=== PATIENT | female | born 1980 | race Native Hawaiian/Other Pacific Islander ===

== ENCOUNTER 2016-08-01 13:52 | Emergency (ER) | payer MEDICARE ==
[2016-08-01 14:16] VITALS: BP 124/89
--- NOTE | 2016-08-01 14:37 | Emergency Department Report ---
Chief Complaint: GI Bleed Stated Complaint: CRAMPING/RECTAL BLEEDING/POSS Time Seen by Provider: 08/01/16 14:35 - HPI History of Present Illness: Patient here reports that she's been bleeding from her rectal area and she states she is . She says she hasn't had a period since November 17, 2015. She says she's been having unprotected sex. 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 Jesus Grimes. She says she was supposed to follow up with him that she missed the appointment. Primary care physician is at [facility] and his name is Dr. Ng. Patient says she was diagnosed with stage III cancer of the cervix and started chemotherapy and radiation 5 months ago. She reports nausea and vomiting. Reports chills but doesn't know she has a fever. She reports that she's having abdominal pain at 10 out of 10. Patient also has mental health disorders. - ROS Review of Systems: All systems are negative unless stated in HPI above. - Exam Vital Signs: Vital Signs 08/01/16 14:10 Temperature 98 F Pulse Rate 118 H Respiratory 18 Rate Blood Pressure 124/89 O2 Sat by Pulse 97 Oximetry Physical Exam: General: This is a 36-year-old female well-nourished well-developed in no acute distress. GI: Tender to palpate periumbilical area. Normal bowel sounds. Abdomen is protruding. Lungs: Clear to auscultate bilaterally, no rhonchi wheezes or rales . CV: Tachycardic at 118 MSE screening note: Focused history and physical exam performed. Due to findings the following was ordered:see [facility] ED Medical Decision Making - Medical Decision Making Medical decision making: Patient seen by provider in triage area. Appropriate protocol activated and patient to main ED to be seen by physician. ED Disposition for [facility] Condition: Stable Forms: Accompanied Note
[2016-08-01 15:01] LABS: Basophils % (Auto) 0.6 % (0.0-1.8); Eosinophils % (Auto) 1.5 % (0.0-4.3); Hemoglobin 13.6 gm/dl (10.1-14.3); Mean Corpuscular HGB Conc 34 % (30-34); Mean Corpuscular Hemoglobin 34 pg (28-32); Mean Corpuscular Volume 99 fl (79-97); Platelet Count 237 K/mm3 (140-440); Red Blood Count 4.06 M/mm3 (3.65-5.03); Red Cell Distribution Width 13.1 % (13.2-15.2); White Blood Count 9.9 K/mm3 (4.5-11.0)
[2016-08-01 15:24] LABS: Alanine Aminotransferase 91 units/L (7-56); Albumin 3.9 g/dL (3.9-5); Albumin/Globulin Ratio 0.9 %; Alkaline Phosphatase 94 units/L (35-129); Amylase 85 units/L (27-131); Anion Gap 18 mmol/L; Bilirubin,Total 0.9 mg/dL (0.1-1.2); Blood Urea Nitrogen 13 mg/dL (7-17); Calcium 9.2 mg/dL (8.4-10.2); Carbon Dioxide 25 mmol/L (22-30); Glucose 98 mg/dL (65-100); Lipase 29 units/L (13-60); Potassium 3.6 mmol/L (3.6-5.0); Sodium 139 mmol/L (137-145); Total Protein 8.1 g/dL (6.3-8.2)
[2016-08-01 15:30] LABS: Bilirubin,Direct < 0.2 mg/dL (0-0.2)
[2016-08-01 15:49] LABS: Urine Drugs of Abuse Note Disclamer
[2016-08-01 16:08] LABS: Bilirubin,Urine NEG (Negative); Blood,Urine NEG (Negative); Ketones,Urine TR mg/dL (Negative); Leukocyte Esterase,Urine NEG (Negative); Mucus,Urine 1+ /HPF; Nitrite,Urine NEG (Negative); Protein,Urine <15 mg/dL mg/dL (Negative)
--- NOTE | 2016-08-03 19:19 | ED Elopement Review ---
ED Pt Elopement review - Results review Lab results: Laboratory Tests 08/01/16 08/01/16 08/01/16 14:44 14:44 14:44 WBC 9.9 RBC 4.06 Hgb 13.6 Hct 40.0 MCV 99 H MCH 34 H MCHC 34 RDW 13.1 L Plt Count 237 Lymph % (Auto) 22.5 [place] % (Auto) 6.9 Eos % (Auto) 1.5 Baso % (Auto) 0.6 Lymph # 2.2 [place] # 0.7 Eos # 0.1 Baso # 0.1 Seg Neutrophils % 68.5 Seg Neutrophils # 6.8 Carbon Dioxide 25 BUN 13 Creatinine 0.5 L Estimated GFR > 60 BUN/Creatinine Ratio 26.00 Glucose 98 Calcium 9.2 Total Bilirubin 0.9 Direct Bilirubin < 0.2 AST 157 H ALT 91 H Alkaline Phosphatase 94 Total Protein 8.1 Albumin 3.9 Albumin/Globulin Ratio 0.9 Amylase 85 Lipase 29 HCG, Qual Negative Urine Color Urine Turbidity Urine pH Ur Specific [place] Urine Protein Urine Glucose (UA) Urine Ketones Urine Blood Urine Nitrite Urine Bilirubin Urine Urobilinogen Ur Leukocyte Esterase Urine WBC (Auto) Urine RBC (Auto) U Epithel Cells (Auto) Urine Mucus Urine Opiates Screen Urine Methadone Screen Ur Barbiturates Screen Ur Phencyclidine Scrn Ur Amphetamines Screen U Benzodiazepines Scrn Urine Cocaine Screen U Marijuana (THC) Screen Drugs of Abuse Note Plasma/Serum Alcohol Blood Type Antibody Screen 08/01/16 08/01/16 08/01/16 14:52 14:52 15:26 WBC RBC Hgb Hct MCV MCH MCHC RDW Plt Count Lymph % (Auto) [place] % (Auto) Eos % (Auto) Baso % (Auto) Lymph # [place] # Eos # Baso # Seg Neutrophils % Seg Neutrophils # Carbon Dioxide BUN Creatinine Estimated GFR BUN/Creatinine Ratio Glucose Calcium Total Bilirubin Direct Bilirubin AST ALT Alkaline Phosphatase Total Protein Albumin Albumin/Globulin Ratio Amylase Lipase HCG, Qual Urine Color [place] Urine Turbidity Clear Urine pH 6.0 Ur Specific [place] 1.024 Urine Protein <15 mg/dl Urine Glucose (UA) Neg Urine Ketones Tr Urine Blood Neg Urine Nitrite Neg Urine Bilirubin Neg Urine Urobilinogen 2.0 Ur Leukocyte Esterase Neg Urine WBC (Auto) 1.0 Urine RBC (Auto) 4.0 U Epithel Cells (Auto) 1.0 Urine Mucus 1+ Urine Opiates Screen Urine Methadone Screen Ur Barbiturates Screen Ur Phencyclidine Scrn Ur Amphetamines Screen U Benzodiazepines Scrn Urine Cocaine Screen U Marijuana (THC) Screen Drugs of Abuse Note Plasma/Serum Alcohol < 0.01 Blood Type O POSITIVE Antibody Screen Negative 08/01/16 15:26 WBC RBC Hgb Hct MCV MCH MCHC RDW Plt Count Lymph % (Auto) [place] % (Auto) Eos % (Auto) Baso % (Auto) Lymph # [place] # Eos # Baso # Seg Neutrophils % Seg Neutrophils # Carbon Dioxide BUN Creatinine Estimated GFR BUN/Creatinine Ratio Glucose Calcium Total Bilirubin Direct Bilirubin AST ALT Alkaline Phosphatase Total Protein Albumin Albumin/Globulin Ratio Amylase Lipase HCG, Qual Urine Color Urine Turbidity Urine pH Ur Specific [place] Urine Protein Urine Glucose (UA) Urine Ketones Urine Blood Urine Nitrite Urine Bilirubin Urine Urobilinogen Ur Leukocyte Esterase Urine WBC (Auto) Urine RBC (Auto) U Epithel Cells (Auto) Urine Mucus Urine Opiates Screen Presumptive negative Urine Methadone Screen Presumptive negative Ur Barbiturates Screen Presumptive negative Ur Phencyclidine Scrn Presumptive negative Ur Amphetamines Screen Presumptive negative U Benzodiazepines Scrn Presumptive negative Urine Cocaine Screen Presumptive negative U Marijuana (THC) Screen Presumptive negative Drugs of Abuse Note Disclamer Plasma/Serum Alcohol Blood Type Antibody Screen - Call Back decision Pt Call Back Decision: No action required
== END 2016-08-01 14:45 | disposition left against medical advice (07) ==
LOC: ED 13:52
DX: K62.5 Hemorrhage of anus and rectum (principal); R11.2 Nausea with vomiting, unspecified; R10.9 Unspecified abdominal pain; Z53.21 Procedure and treatment not carried out due to patient leaving prior to being seen by health care provider
CPT/HCPCS: 36415; 80048; 80074; 80307; 81001; 82150; 83690; 84703; 85025; 86850; 86900; 86901; G0480; 80320

== ENCOUNTER 2017-02-04 02:47 | Emergency (ER) | payer MEDICARE ==
[2017-02-04 04:49] VITALS: BP 126/79
[2017-02-04 05:17] LABS: Urine Drugs of Abuse Note Disclamer
[2017-02-04 05:27] LABS: Bacteria,Urine 1+ /HPF (Negative); Bilirubin,Urine NEG (Negative); Blood,Urine NEG (Negative); Ketones,Urine NEG (Negative); Leukocyte Esterase,Urine SM (Negative); Mucus,Urine FEW /HPF; Nitrite,Urine NEG (Negative); Protein,Urine <15 mg/dL mg/dL (Negative); Urobilinogen,Urine < 2.0 mg/dL (<2.0)
--- NOTE | 2017-02-04 06:22 | XRay Report ---
FINAL REPORT PROCEDURE: XR ANKLE 3+V LT TECHNIQUE: LEFT ankle radiographs, AP, lateral, and oblique views. CPT 06545 HISTORY: Pain, injury COMPARISON: No prior studies are available for comparison. FINDINGS: Fracture (s) and/or Dislocation(s): There is a small avulsion fracture off the tip of the lateral malleolus.. Alignment: Normal. Joint space(s): Normal. Soft tissues: Mild diffuse soft tissue swelling. Bone mineralization: Normal. Foreign bodies: None. Calcaneal spurring: Small inferior spur. IMPRESSION: Small avulsion fracture off the tip of the lateral malleolus. There is associated moderate soft tissue swelling..
[2017-02-04] MEDS ORDERED: MOTRIN PO ONE (06:52)
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
== END 2017-02-04 07:35 | disposition home or self-care (01) ==
LOC: ED 02:47
DX: N39.0 Urinary tract infection, site not specified (principal); K08.89 Other specified disorders of teeth and supporting structures; M25.572 Pain in left ankle and joints of left foot; F43.9 Reaction to severe stress, unspecified; S82.62XK Displaced fracture of lateral malleolus of left fibula, subsequent encounter for closed fracture with nonunion; F31.9 Bipolar disorder, unspecified; F20.9 Schizophrenia, unspecified; F17.200 Nicotine dependence, unspecified, uncomplicated; F12.90 Cannabis use, unspecified, uncomplicated; Z88.2 Allergy status to sulfonamides; Z88.8 Allergy status to other drugs, medicaments and biological substances; Z85.41 Personal history of malignant neoplasm of cervix uteri; X58.XXXD Exposure to other specified factors, subsequent encounter
CPT/HCPCS: 80307; 81001; 81025

== ENCOUNTER 2017-02-20 11:56 | Emergency (ER) | payer MEDICARE ==
[2017-02-20 12:43] LABS: Basophils % (Auto) 0.6 % (0.0-1.8); Eosinophils % (Auto) 2.3 % (0.0-4.3); Hematocrit 43.6 % (30.3-42.9); Hemoglobin 14.9 gm/dl (10.1-14.3); Mean Corpuscular HGB Conc 34 % (30-34); Mean Corpuscular Hemoglobin 33 pg (28-32); Mean Corpuscular Volume 96 fl (79-97); Platelet Count 208 K/mm3 (140-440); Red Blood Count 4.53 M/mm3 (3.65-5.03); White Blood Count 10.5 K/mm3 (4.5-11.0)
[2017-02-20 13:29] LABS: Urine Drugs of Abuse Note Disclamer
[2017-02-20 13:45] LABS: Bilirubin,Urine NEG (Negative); Blood,Urine NEG (Negative); Ketones,Urine NEG (Negative); Leukocyte Esterase,Urine MOD (Negative); Mucus,Urine 1+ /HPF; Nitrite,Urine NEG (Negative); Protein,Urine <15 mg/dL mg/dL (Negative); Urobilinogen,Urine < 2.0 mg/dL (<2.0)
[2017-02-20 13:45] LABS: Alanine Aminotransferase 50 units/L (7-56); Albumin 4.3 g/dL (3.9-5); Alkaline Phosphatase 114 units/L (35-129); Anion Gap 21 mmol/L; Blood Urea Nitrogen 9 mg/dL (7-17); Carbon Dioxide 24 mmol/L (22-30); Glucose 94 mg/dL (65-100); Lipase 24 units/L (13-60); Potassium 4.3 mmol/L (3.6-5.0); Sodium 142 mmol/L (137-145); Total Protein 8.6 g/dL (6.3-8.2)
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
--- NOTE | 2017-02-20 14:03 | XRay Report ---
ABDOMEN, 2 views: History: Abdominal pain. There is no evidence of free air beneath the diaphragms. The gas pattern within the abdomen is unremarkable. There is no evidence of bowel dilatation, significant air-fluid levels, or pathologic calcifications. Organ shadows are unremarkable. IMPRESSION: Unremarkable abdomen.
[2017-02-20] MEDS: MACROBID PO SCH ×2 (14:44→21:53)
--- NOTE | 2017-02-20 15:18 | Ultrasound Report ---
Transvaginal and transabdominal pelvic ultrasound. History: Pelvic pain. Findings: The study is severely technically compromised by the patient's clinical condition and inability to cooperate during the performance of the study. The uterus is normal in size and configuration with no definite focal abnormalities. Doppler interrogation could not be performed successfully due to patient mobility. The adnexa are grossly negative, but the ovaries are not identified. No fluid is seen within the cul-de-sac. Impression: Severely limited but grossly negative study.
[2017-02-20] MEDS ORDERED: MOTRIN PO ONE ×3 (16:13→23:05)
[2017-02-20 20:18] VITALS: BP 122/76
== END 2017-02-21 00:24 ==
LOC: EEVIPCON 11:56 → ED 11:56
DX: F22 Delusional disorders (principal); F29 Unspecified psychosis not due to a substance or known physiological condition; F31.9 Bipolar disorder, unspecified; F20.9 Schizophrenia, unspecified; F90.9 Attention-deficit hyperactivity disorder, unspecified type; F17.200 Nicotine dependence, unspecified, uncomplicated; F15.10 Other stimulant abuse, uncomplicated; C53.9 Malignant neoplasm of cervix uteri, unspecified
CPT/HCPCS: 36415; 74020; 76830; 76856; 80053; 80307; 81001; 83690; 84703; 85025; 99285; G0480; 80320